=== PATIENT | female | born 1950 | race Native Hawaiian/Other Pacific Islander ===

== ENCOUNTER 2017-07-27 06:04 | Emergency (ER) | payer OTHER ==
[~2017-07-27] VITALS: Ht 162.6 cm; Wt 76.2 kg
[2017-07-27] MEDS ORDERED: PROTONIX20 MG PO (06:25)
[2017-07-27] MEDS ORDERED: LEVO0.1224 PO (06:25)
[2017-07-27] MEDS ORDERED: MONTELUKAST SOD10 MG PO (06:26)
[2017-07-27] MEDS ORDERED: GLIP10TA55 PO (06:26)
[2017-07-27] MEDS ORDERED: DEXAMETHASON4 MG PO (06:26)
[2017-07-27] MEDS ORDERED: BUDE1AER5 INH (06:27)
[2017-07-27] MEDS ORDERED: METO50TA27 PO (06:27)
[2017-07-27] MEDS ORDERED: MEGE40SU PO (06:29)
[2017-07-27] MEDS ORDERED: LIPITOR80 MG PO (06:30)
[2017-07-27] MEDS ORDERED: METFORMIN HCL500 M1 PO (06:30)
[2017-07-27] MEDS ORDERED: TEMA30CA18 PO (06:31)
[2017-07-27] MEDS ORDERED: MOXIFLOXACIN H400 MG PO (06:31)
[2017-07-27] MEDS ORDERED: CLARITIN RDT10 MG PO (06:32)
[2017-07-27] MEDS ORDERED: TRICOR145 M1 PO (06:32)
[2017-07-27] MEDS ORDERED: [UNRECOGNIZED DRUG - OTHER] PO (06:33)
[2017-07-27 06:36] LABS: POTASSIUM 4.1 mmol/L (3.6-5.2)
[2017-07-27 06:51] LABS: PLATELET COUNT 68 K/uL (152-353)
[2017-07-27 07:59] VITALS: TEMP 97.6
[2017-07-27 08:37] VITALS: BP 151/85
== END 2017-07-27 08:51 | disposition short-term general hospital (02) ==
LOC: ED 06:04
PROC: 0T9B70Z Drainage of Bladder with Drainage Device, Via Natural or Artificial Opening (ICD-10-PCS; principal; 2017-07-27)
DX: C34.90 Malignant neoplasm of unspecified part of unspecified bronchus or lung (principal); J90 Pleural effusion, not elsewhere classified; R00.0 Tachycardia, unspecified
CPT/HCPCS: 36415; 36600; 51702; 80053; 81000; 82805; 83880; 85027; 93005; 96374; 96375; 99285; J1940; J2405

== ENCOUNTER 2017-07-27 08:58 | Outpatient (CLI) | payer OTHER ==
[~2017-07-27 08:58] MED LIST: BUDE1AER5 INH; CLARITIN RDT10 MG PO; DEXAMETHASON4 MG PO; GLIP10TA55 PO; LEVO0.1224 PO; LIPITOR80 MG PO; MEGE40SU PO; METFORMIN HCL500 M1 PO; METO50TA27 PO; MONTELUKAST SOD10 MG PO; MOXIFLOXACIN H400 MG PO; PROTONIX20 MG PO; TEMA30CA18 PO; TRICOR145 M1 PO; [UNRECOGNIZED DRUG - OTHER] PO
== END 2017-07-27 10:00 | disposition short-term general hospital (02) ==
LOC: AMB 08:58
DX: C34.90 Malignant neoplasm of unspecified part of unspecified bronchus or lung (principal); J90 Pleural effusion, not elsewhere classified; R00.0 Tachycardia, unspecified
CPT/HCPCS: A0425; A0427